=== PATIENT | female | born 2000 | race Caucasian/White ===

== ENCOUNTER 2023-05-06 16:52 | Emergency (ER) | payer MEDICAID, OTHER ==
[~2023-05-06] VITALS: Ht 162.6 cm; Wt 65.8 kg
[2023-05-06 17:16] VITALS: BP 109/69; PULSE 86; RESP 20; TEMP 98.1; O2SAT 99
[2023-05-06] MEDS ORDERED: IBUPROFEN 600 MG TAB PO ONE (17:55)
[2023-05-06] MEDS ORDERED: LID5T TP (19:03)
[2023-05-06] MEDS ORDERED: IBUP-2213 PO (19:03)
[2023-05-06] MEDS ORDERED: CYCL-711 PO (19:03)
== END 2023-05-06 19:13 | disposition home or self-care (01) ==
LOC: MED 16:59
DX: S16.1XXA Strain of muscle, fascia and tendon at neck level, initial encounter (principal); V49.88XA Car occupant (driver) (passenger) injured in other specified transport accidents, initial encounter; Y93.89 Activity, other specified; Y92.89 Other specified places as the place of occurrence of the external cause; Y99.8 Other external cause status
CPT/HCPCS: 72040; 99283